=== PATIENT | female | born 1935 | race Asian ===

== ENCOUNTER 2020-03-24 08:58 | Emergency (ER) | payer OTHER ==
[~2020-03-24] VITALS: Ht 149.9 cm; Wt 48.1 kg
[2020-03-24 09:06] VITALS: BP 180/77; Ht 149.9 cm; Wt 48.1 kg
[2020-03-24 16:19] LABS: BASOPHIL % 0.7 % (0.2-1.3); PLATELET COUNT 287 x10^3mcL (179-408); RED CELL DISTRIBUTION WIDTH 13.9 % (12.3-17.7)
[2020-03-24 16:50] LABS: rbc morphology (normal/abnorm) NORMAL (NORMAL)
[2020-03-24 17:27] LABS: CALCIUM 8.9 mg/dL (8.5-10.1); CARBON DIOXIDE 27.9 mmol/L (21-32); CHLORIDE SERUM 103 mmol/L (98-107); CREATININE SERUM 0.9 mg/dL (0.6-1.0); GLUCOSE SERUM 202 mg/dL (74-106); POTASSIUM SERUM 4.1 mmol/L (3.5-5.1); SODIUM SERUM 141 mmol/L (136-145)
[2020-03-24 17:34] LABS: ALKALINE PHOSPHATASE 55 U/L (46-116); ALT/SGPT 30 U/L (14-59); AST/SGOT 18 U/L (15-37); BILIRUBIN TOTAL 0.37 mg/dL (0.20-1.00); TOTAL PROTEIN, SERUM 7.8 g/dL (6.4-8.2)
== END 2020-03-24 16:52 | disposition home or self-care (01) ==
LOC: ED 08:58
PROVIDERS: Emergency Medicine
DX: I16.0 Hypertensive urgency (principal); I10 Essential (primary) hypertension; R51.9 Headache, unspecified; M54.2 Cervicalgia
CPT/HCPCS: 83880